=== PATIENT | male | born 1980 | race Caucasian/White ===

== ENCOUNTER 2021-01-11 02:26 | Emergency (ER) | payer MEDICAID, OTHER, SELFPAY ==
[~2021-01-11] VITALS: Ht 172.7 cm; Wt 63.8 kg
--- NOTE | 2021-01-11 02:45 | NUR ---
patient resting in bed in NAD. states he has a wound on his lower abdomen "its not from drugs. i think i have syphillis". periwound skin is red and wound is open (nickel size opening) and has sloghed skin edges and wound bed has sloughed skin and darkenned epithial skin. no active drainage at this time. patient states "i was in the shower and i popped it and i was trying to get all the pus out". denies fevers, chills, vomiting, nausea. call modi in reach. safety maintained
[2021-01-11 03:24] VITALS: BP 139/91
== END 2021-01-11 03:26 | disposition home or self-care (01) ==
LOC: ED 03:15
DX: L03.311 Cellulitis of abdominal wall (principal); L02.211 Cutaneous abscess of abdominal wall; F15.10 Other stimulant abuse, uncomplicated; R10.9 Unspecified abdominal pain; Z72.9 Problem related to lifestyle, unspecified; Z20.2 Contact with and (suspected) exposure to infections with a predominantly sexual mode of transmission
CPT/HCPCS: 36415; 86592; 87491; 87591; 99283

== ENCOUNTER 2021-03-29 20:15 | Emergency (ER) | payer MEDICAID ==
[~2021-03-29] VITALS: Ht 172.7 cm; Wt 66.4 kg
[2021-03-29 20:24] VITALS: BP 123/83
[2021-03-29] MEDS ORDERED: LIDOCAINE-MPF 1%, 5ML INFIL ONE (20:30)
[2021-03-29] MEDS ORDERED: LIDOCAINE-MPF 1%, 5ML ONE (20:48)
[2021-03-29] MEDS ORDERED: IBUPROFEN 600 MG TABLET ONE (21:47)
[2021-03-29] MEDS ORDERED: IBUPROFEN 600 MG TABLET PO ONE (22:00)
== END 2021-03-29 21:54 | disposition home or self-care (01) ==
LOC: ED 21:14
DX: L03.211 Cellulitis of face (principal); L02.01 Cutaneous abscess of face; R00.0 Tachycardia, unspecified
CPT/HCPCS: 10060; 99283